=== PATIENT | male | born 1945 | race Caucasian/White ===

== ENCOUNTER 2016-10-01 12:42 | Emergency (ER) | payer MEDICARE, OTHER ==
--- NOTE | ~2016-10-01 | HOLTER ---
Holter Monitor [facility] [address] [place]. [address] NAME: JULIUS VERDIN : 43 STATUS : DEP ER PAT#: [id number] AGE: 71 ADM/REG DATE : 10/01/16 MR#: [id number] REPORT SERV DATE: 10/06/16 DICTATED BY: BERNARDO ELLIS DATE: 10/04/16 REPORT STATUS : Cancelled TRANSCRIBED BY: MACK DATE: 10/04/16 24-HOUR HOLTER MONITOR REPORT RESPONSIBLE PROVIDER: INDICATIONS: This 71-year-old male with SVT. RECORDING QUALITY: Overall quality of study shows that lead V1 apparently would come unattached on occasions. RHYTHM: Rhythm appears to be sinus with what appears to be first-degree AV block. Recommend correlation with 12-lead EKG. Rate varies from 43-153 beats per minute with an average heart rate of 81 beats per minute. There are 2 pauses greater than 2 seconds. VENTRICULAR ARRHYTHMIA: There is occasional ventricular ectopy. SUPRAVENTRICULAR ARRHYTHMIA: There is very frequent supraventricular ectopy with recurrent runs of supraventricular tachycardia. SYMPTOMS: CONCLUSION: Please see attached worksheet for further details. Definitions for premature beat frequency Approximately Rare <100 <0.1 % Occasional 100-1500 0.1 - 1.5 % Frequent >1500 >1.5 % ROWAN/MACK Bernardo Ellis M.D. / [id number]
[2016-10-01 12:18] LABS: BASOPHILS 0.3 %; BASOPHILS ABSOLUTE 0.03 10/3/uL (0.0-0.16); EOSINOPHILS 0.9 %; EOSINOPHILS ABSOLUTE 0.09 10/3/uL (0.0-0.53); HEMOGLOBIN 17.2 g/dL (13.6-17.8); IMMATURE GRANULOCYTES 0.2 %; IMMATURE GRANULOCYTES ABSOLUTE 0.02 10/3/uL (0.0-0.11); LYMPHOCYTES 21.5 %; LYMPHOCYTES ABSOLUTE 2.17 10/3/uL (0.67-4.30); MEAN CORPUSCULAR HEMOGLOB 32.8 pg (26.0-34.0); MEAN CORPUSCULAR VOLUME 93.7 fL (80-100); MEAN PLATELET VOLUME 10.6 fL (9.2-13.0); MONOCYTES 7.5 %; MONOCYTES ABSOLUTE 0.76 10/3/uL (0.21-1.20); NEUTROPHILS 69.6 %; NEUTROPHILS ABSOLUTE 7.03 10/3/uL (2.02-8.40); PLATELET COUNT 264 10/3/uL (150-400); RBC DISTRIBUTION WIDTH 12.9 % (12.0-16.0); RED CELL COUNT 5.25 10/6/uL (4.7-6.1)
[2016-10-01 12:19] LABS: ER CBC TAT 0 Hrs 08 Mins; HEMATOCRIT 49.2 % (40.0-51.0); MANUAL DIFF NO %; WHITE BLOOD CELLS 10.1 10/3/uL (4.5-10.5)
[2016-10-01 12:25] LABS: INTERNATIONAL NORMAL RATI 1.1 UNITS (-); PARTIAL THROMBO TIME 34.9 SEC (22.5-37.2); PROTIME (NOT ORD) 13.8 SEC (12.0-14.5)
[2016-10-01 12:39] LABS: BUN (BLOOD UREA NITROGEN) 9 MG/DL (6-23); CALCIUM, SERUM 9.4 MG/DL (8.5-10.4); CHEST PAIN PROFILE TAT 0 Hrs 28 Mins; CHLORIDE, SERUM 107 MMOL/L (96-112); CO2 (CARBON DIOXIDE) 26 MMOL/L (24-34); CREATININE 0.88 MG/DL (0.70-1.30); GFR AFRICAN AMERICAN 99 ML/MIN (>=60); GFR NON AFRICAN AMERICAN 86 ML/MIN (>=60); GLUCOSE, SERUM 120 MG/DL (60-99); POTASSIUM, SERUM 4.4 MMOL/L (3.5-5.3); SODIUM, SERUM 144 MMOL/L (135-148); TROPONIN I <0.02 NG/ML (<0.05); ULTRASENSITIVE TSH 0.603 MCIU/ML (0.358-3.740)
[~2016-10-01 12:42] MED LIST: DIABET2.5 PO; FLEX PO; IRON PO; MULTI-VIT/F1 OR; MULTIVITAMI1 PO; PERCOCET1 TA2 PO; PRIN5 PO; STRESS B PO
[2016-11-09] MEDS ORDERED: GLUCXL5 PO (11:18)
[2016-11-09] MEDS ORDERED: MOBIC15 MG PO (11:19)
[2016-11-09] MEDS ORDERED: LISINOPRIL40 MG PO (11:19)
[2016-11-09] MEDS ORDERED: OTEZLA PO (11:21)
[2016-11-09] MEDS ORDERED: VITAMIN D31000 UNIT PO (11:22)
[2016-11-09] MEDS ORDERED: VIAGRA100 MG PO (11:32)
[2016-11-10] MEDS ORDERED: ULTRAM50 PO (11:44)
[2016-11-10] MEDS ORDERED: CARDCD120 PO (11:44)
[2017-02-21] MEDS ORDERED: IMDUR30 PO (11:44)
[2017-02-21] MEDS ORDERED: VITD PO (11:45)
[2017-02-21] MEDS ORDERED: B12100T PO (11:45)
[2017-02-21] MEDS ORDERED: T PO (11:46)
[2017-02-21] MEDS ORDERED: ASAB PO (11:46)
[2017-02-21] MEDS ORDERED: VITE PO (11:47)
[2017-02-21] MEDS ORDERED: LIPITOR40 PO (16:36)
[2017-02-22] MEDS ORDERED: NITROQUICK0.4 MG SL (11:37)
[2017-02-22] MEDS ORDERED: LOP25 PO (11:38)
[2017-02-22] MEDS ORDERED: PLAVIX PO (11:39)
== END 2016-10-01 13:44 | disposition home or self-care (01) ==
LOC: ER 12:42
PROVIDERS: Emergency Medicine
DX: I47.1 Supraventricular tachycardia (principal); I10 Essential (primary) hypertension; E11.9 Type 2 diabetes mellitus without complications; Z79.899 Other long term (current) drug therapy; Z79.84 Long term (current) use of oral hypoglycemic drugs
CPT/HCPCS: 71010; 80048; 83735; 84443; 84484; 85025; 85610; 85730; 93005; 93225; 96374; 99285